=== PATIENT | male | born 2000 | race African-American/Black ===

== ENCOUNTER 2020-10-23 06:22 | Emergency (ER) | payer OTHER, SELFPAY ==
[2020-10-23] MEDS ORDERED: Ketorolac Tromethamine 15 MG/ML VIAL ONE (06:44)
== END 2020-10-23 06:57 | disposition home or self-care (01) ==
LOC: CSHERS 06:22
DX: M54.5 Low back pain (principal); V89.2XXA Person injured in unspecified motor-vehicle accident, traffic, initial encounter
CPT/HCPCS: 96372; 99283; J1885

== ENCOUNTER 2021-10-27 13:58 | Emergency (ER) | payer SELFPAY ==
[2021-10-27 16:17] LABS: Bilirubin Neg (Negative); Blood, Urine Negative (Negative); Clarity Clear (Clear); Glucose, Urine (Dipstick) Normal (Negative); Ketone, Urine Negative (Negative); Leukocyte Negative (Negative); Nitrite Negative (Negative); Protein, Urine (Dipstick) Negative (Neg-Trace); Specific Gravity, Urine 1.005 (1.002-1.036); Urobilinogen Normal mg/dL (Less than 2)
[2021-10-27 16:25] LABS: Amphetamine Detected (NotDetected); Barbiturates Screen Not Detected (NotDetected); Benzodiazepine Screen Not Detected (NotDetected); Cocaine Metabolite Screen Not Detected (NotDetected); Methadone Not Detected (NotDetected); Methamphetamine Detected (NotDetected); Opiate Screen Not Detected (NotDetected); Oxycodone Screen Not Detected (NotDetected); Phencyclidine (PCP) Not Detected (NotDetected); THC/Cannabinoid Screen Detected (NotDetected); Tricyclic Screen Not Detected (NotDetected)
[2021-10-27 16:36] LABS: #Basophils 0.1 10x3/uL (0.0-0.2); #Eosinphils 0.1 10x3/uL (0.0-0.5); #Monocytes 0.6 10x3/uL (0.0-1.1); #Neutrophils 8.7 10x3/uL (1.5-8.4); %Basophils 0.6 % (0.0-2.0); %Eosinophils 0.8 % (0.0-6.0); %Lymphocytes 12.1 % (18.0-47.0); %Monocytes 5.5 % (0.0-10.0); %Neutrophils 80.5 % (40.0-75.0); Hemoglobin 12.6 g/dL (13.5-17.5); Mean Corpuscular HGB CONC 34.1 g/dL (32.0-36.0); Mean Corpuscular Hemoglobin 30.9 pg (27.0-33.0); Mean Corpuscular Volume 90.4 fl (81.2-95.1); Mean Platelet Volume 10.4 fl (7.4-10.4); Platelet Count 185 10x3/uL (150-450); RBC Distribution Width 11.5 % (11.5-14.5); Red Blood Cell (RBC) Count 4.08 10x6/uL (4.32-5.72); White Blood Cell (WBC) Count 10.8 10x3/uL (3.5-10.5)
[2021-10-27 16:49] LABS: ALT (SGPT) 10 U/L (8-55); AST (SGOT) 15 U/L (5-34); Albumin 4.1 g/dL (3.5-5.0); Alkaline Phosphatase 59 U/L (40-110); Anion Gap 11 mmol/L (10-20); BUN (Urea Nitrogen) 8 mg/dL (8.9-20.6); Bilirubin, Total 0.4 mg/dL (0.2-1.2); Calc. Creatinine Clearance 0 mL/min (70-130); Calcium 9.2 mg/dL (7.8-10.44); Carbon Dioxide 29 mmol/L (22-29); Chloride 102 mmol/L (98-107); Globulin 2.4 g/dL (2.4-3.5); Glucose 102 mg/dL (70-105); Potassium 3.4 mmol/L (3.5-5.1); Protein, Total 6.5 g/dL (6.0-8.3); Sodium 139 mmol/L (136-145)
[2021-10-27 16:50] LABS: Acetaminophen Less than 10.0 mcg/mL (10.0-30.0); Alcohol Less than 10 mg/dL (Less than 10); CK (CPK) 50 U/L (30-200); Salicylate Less than 8.0 mg/dL (15.0-30.0)
== END 2021-10-27 19:17 | disposition home or self-care (01) ==
LOC: CSHERS 13:58
DX: F15.10 Other stimulant abuse, uncomplicated (principal); R41.82 Altered mental status, unspecified; F17.210 Nicotine dependence, cigarettes, uncomplicated
CPT/HCPCS: 80053; 80306; 80307; 81003; 82550; 84443; 85025; 99284

== ENCOUNTER → 2021-12-05 | Emergency (ER) | payer SELFPAY ==
[~2021-12-05] MED LIST: Azithromycin 250 MG TAB ONE; Haloperidol Lactate 5 MG/ML VIAL ONE; Ketamine 50 MG/ML (10ML VIAL) ONE; Lorazepam 2 MG/ML VIAL ONE; Midazolam HCl 2 mg/2 ml Vial ONE; cefTRIAXone\\ROCEPHIN 500 MG VIAL ONE; diphenhydrAMINE 50 MG/ML VIAL ONE
[2021-12-06 00:16] LABS: #Basophils 0.1 10x3/uL (0.0-0.2); #Eosinphils 0.1 10x3/uL (0.0-0.5); #Monocytes 1.1 10x3/uL (0.0-1.1); #Neutrophils 8.5 10x3/uL (1.5-8.4); %Basophils 0.8 % (0.0-2.0); %Eosinophils 0.7 % (0.0-6.0); %Lymphocytes 18.3 % (18.0-47.0); %Monocytes 8.9 % (0.0-10.0); %Neutrophils 70.9 % (40.0-75.0); Hemoglobin 14.8 g/dL (13.5-17.5); Mean Corpuscular HGB CONC 33.6 g/dL (32.0-36.0); Mean Corpuscular Hemoglobin 31.3 pg (27.0-33.0); Mean Platelet Volume 10.7 fl (7.4-10.4); Platelet Count 282 10x3/uL (150-450); RBC Distribution Width 12.5 % (11.5-14.5); Red Blood Cell (RBC) Count 4.73 10x6/uL (4.32-5.72)
[2021-12-06 00:23] LABS: Acetaminophen Less than 10.0 mcg/mL (10.0-30.0); Alcohol Less than 10 mg/dL (Less than 10); Salicylate Less than 8.0 mg/dL (15.0-30.0)
[2021-12-06 00:24] LABS: ALT (SGPT) 27 U/L (8-55); AST (SGOT) 19 U/L (5-34); Albumin 5.1 g/dL (3.5-5.0); Alkaline Phosphatase 69 U/L (40-110); Anion Gap 20 mmol/L (10-20); BUN (Urea Nitrogen) 19 mg/dL (8.9-20.6); Bilirubin, Total 1.2 mg/dL (0.2-1.2); Calc. Creatinine Clearance 0 mL/min (70-130); Carbon Dioxide 22 mmol/L (22-29); Chloride 103 mmol/L (98-107); Globulin 3.3 g/dL (2.4-3.5); Glucose 106 mg/dL (70-105); Potassium 4.7 mmol/L (3.5-5.1); Protein, Total 8.4 g/dL (6.0-8.3); Sodium 140 mmol/L (136-145)
[2021-12-06 01:19] LABS: Bilirubin 1+ (Negative); Blood, Urine 150 (Negative); Clarity Slightly Cloudy (Clear); Glucose, Urine (Dipstick) Normal (Negative); Ketone, Urine 50 mg/dL (Negative); Leukocyte Negative (Negative); Nitrite Negative (Negative); Protein, Urine (Dipstick) 30 mg/dl (Neg-Trace)
[2021-12-06 01:26] LABS: RBC/HPF 21-50 HPF (0-3)
[2021-12-06 01:27] LABS: Bacteria/HPF 1+ HPF (None Seen); Mucous/LPF 2+ LPF (<2+); Squamous Epithelial 0-3 HPF (0-3)
[2021-12-06 01:28] LABS: Amphetamine Detected (NotDetected); Barbiturates Screen Not Detected (NotDetected); Benzodiazepine Screen Not Detected (NotDetected); Cocaine Metabolite Screen Not Detected (NotDetected); Methadone Not Detected (NotDetected); Methamphetamine Detected (NotDetected); Opiate Screen Not Detected (NotDetected); Oxycodone Screen Not Detected (NotDetected); Phencyclidine (PCP) Not Detected (NotDetected); THC/Cannabinoid Screen Detected (NotDetected); Tricyclic Screen Not Detected (NotDetected)
[2021-12-06 05:54] LABS: SARS-CoV-2 NAA Rapid Test Not Detected (NotDetected)
[2021-12-07 14:37] LABS: Chlam.trachomatis by PCR,Urine Not Detected (NotDetected)
== END ==
LOC: CSHERS 23:20
DX: R45.851 Suicidal ideations (principal); R00.0 Tachycardia, unspecified; F17.210 Nicotine dependence, cigarettes, uncomplicated; Z20.822 Contact with and (suspected) exposure to COVID-19
CPT/HCPCS: 80053; 80306; 80307; 81003; 81015; 85025; 87491; 87591; 93005; 96372; J0696; J1200; J1630; J2060; J2250; U0002

== ENCOUNTER 2022-05-09 19:14 | Emergency (ER) | payer SELFPAY | END 2022-05-09 20:26 | disposition home or self-care (01) | LOC: CSHERS 19:14 | DX: H61.23 Impacted cerumen, bilateral (principal) | CPT/HCPCS: 99282 ==